=== PATIENT | male | born 1980 | race African-American/Black ===

== ENCOUNTER 2021-11-01 07:07 | Emergency (ER) | payer MEDICAID, OTHER ==
[~2021-11-01] VITALS: Ht 177.8 cm; Wt 80.0 kg
[~2021-11-01 07:07] MED LIST: ALBUTEROL; IBUPROFEN
[2021-11-01] MEDS ORDERED: METHYLPREDNISOLONE SOD SUCC 125 MG/2 ML VIAL IV STA (07:13)
[2021-11-01] MEDS ORDERED: ALBUTEROL (0.083%) 2.5MG/3ML NEB HHN STA (07:13)
[2021-11-01] MEDS ORDERED: IPRATROPIUM BROMIDE (0.02%) 0.5MG/2.5ML NEB HHN STA (07:13)
[2021-11-01] MEDS ORDERED: ACETAMINOPHEN 325MG TABLET PO ONE (07:15)
[2021-11-01] MEDS ORDERED: METHYLPREDNISOLONE SOD SUCC 125 MG/2 ML VIAL IV SCH (08:30)
[2021-11-01] MEDS ORDERED: ALBUTEROL (0.083%) 2.5MG/3ML NEB HHN SCH (08:30)
[2021-11-01] MEDS ORDERED: IPRATROPIUM BROMIDE (0.02%) 0.5MG/2.5ML NEB HHN SCH (08:30)
[2021-11-01 10:00] VITALS: BP 126/92
[2021-11-01] MEDS ORDERED: ALBU6.7H9 INH (11:12)
[2021-11-01] MEDS ORDERED: ALBU05 NEB (11:12)
[2021-11-01] MEDS ORDERED: TOPUD PO (11:12)
[2021-11-01] MEDS ORDERED: P50 PO (11:12)
== END 2021-11-01 11:21 | disposition home or self-care (01) ==
LOC: ER 07:07
DX: S40.021A Contusion of right upper arm, initial encounter (principal); J45.901 Unspecified asthma with (acute) exacerbation; Z20.822 Contact with and (suspected) exposure to COVID-19; Z91.013 Allergy to seafood; X58.XXXA Exposure to other specified factors, initial encounter; Y93.89 Activity, other specified; Y92.89 Other specified places as the place of occurrence of the external cause
CPT/HCPCS: 87426; 93971; 94644; 96374; 99285; C9803; J2930; Z7610

== ENCOUNTER 2022-03-21 21:21 | Emergency (ER) | payer OTHER ==
[~2022-03-21] VITALS: Ht 175.3 cm; Wt 82.0 kg
[~2022-03-21 21:21] MED LIST changes: +ALBU05 NEB; +ALBU6.7H9 INH; +P50 PO; +TOPUD PO
[2022-03-21 21:23] VITALS: BP 124/86
== END 2022-03-22 04:49 | disposition left against medical advice (07) ==
LOC: ER 21:21
DX: Z53.21 Procedure and treatment not carried out due to patient leaving prior to being seen by health care provider (principal)

== ENCOUNTER 2022-03-22 07:17 | Emergency (ER) | payer OTHER ==
[~2022-03-22] VITALS: Ht 165.1 cm; Wt 88.0 kg
[2022-03-22] MEDS ORDERED: METHYLPREDNISOLONE SOD SUCC 125 MG/2 ML VIAL IM STA (11:04)
[2022-03-22] MEDS ORDERED: BACITRACIN ZINC OINT UDPKT TOP ONE (11:15)
[2022-03-22] MEDS ORDERED: HYDROCODONE/ACETAMINOPHEN 5/325MG TABLET PO ONE (11:15)
[2022-03-22] MEDS ORDERED: LIDOCAINE HCL/PF 1% 10 MG/ML 5ML VIAL INFIL ONE (11:15)
[2022-03-22] MEDS ORDERED: CEFAZOLIN 1000MG PREMIX 50 ML IV ONE (12:15)
[2022-03-22 12:32] VITALS: BP 134/90
== END 2022-03-22 15:21 | disposition left against medical advice (07) ==
LOC: ER 07:17
DX: L02.416 Cutaneous abscess of left lower limb (principal); J45.909 Unspecified asthma, uncomplicated
CPT/HCPCS: 96372; 99283; J2930; J3490; Z7610